=== PATIENT | male | born 1965 | race Caucasian/White ===

== ENCOUNTER 2017-01-22 13:20 | Emergency (ER) | payer OTHER ==
[2017-01-22 13:27] VITALS: BP 144/100; PULSE 72; TEMP 98; BMI 31.7
[2017-01-22] MEDS ORDERED: diazePAM 5 MG TABLET PO ONE (13:46)
[2017-01-22] MEDS ORDERED: KETOROLAC TROMETHAMINE 60 MG/2 ML VIAL IM ONE (13:46)
[2017-01-22] MEDS ORDERED: KETOROLAC TROMETHAMINE 60 MG/2 ML VIAL ONE (13:50)
[2017-01-22] MEDS ORDERED: diazePAM 5 MG TABLET ONE (13:50)
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
== END 2017-01-22 14:29 | disposition home or self-care (01) ==
LOC: JERFT 13:20
PROC: 3E0233Z Introduction of Anti-inflammatory into Muscle, Percutaneous Approach (ICD-10-PCS; principal; 2017-01-22)
DX: M54.5 Low back pain (principal); X50.1XXA Overexertion from prolonged static or awkward postures, initial encounter; Y93.89 Activity, other specified; Y92.89 Other specified places as the place of occurrence of the external cause; I10 Essential (primary) hypertension; I48.91 Unspecified atrial fibrillation
CPT/HCPCS: 99281-25

== ENCOUNTER 2017-10-05 19:52 | Emergency (ER) | payer SELFPAY ==
[2017-10-05 20:00] VITALS: BP 142/94; PULSE 85; TEMP 97.6; BMI 31.0
--- NOTE | 2017-10-05 20:00 | PDOC ---
Rapid Medical Evaluation Time Seen by Provider: 10/05/17 19:56 Medical Evaluation: Allergies Allergy/AdvReac Type Severity Reaction Status Date / Time No Known Allergies Allergy Verified 01/22/17 13:27 10/05/17 19:56 The patient presents with a chief complaint of: Tick bite to L upper leg. Tick implanted for less than 24 hours. I have performed a brief in-person evaluation of this patient; Pertinent physical exam findings: None I have ordered the following: Nothing The patient will proceed to the ED for further evaluation. Discharge Disposition - Diagnosis Tick bite Qualifiers: Encounter type: initial encounter Qualified Code(s): W57.XXXA - Bitten or stung by nonvenomous insect and other nonvenomous arthropods, initial encounter - Referrals - Patient Instructions - Post Discharge Activity
[2017-10-05] MEDS ORDERED: DOXYCYCLINE HYCLATE 100 MG CAPSULE PO ONE ×4 (20:16→20:56)
--- NOTE | 2017-10-05 20:53 | PDOC ---
History of Present Illness - General Chief Complaint: Bite Stated Complaint: INJURY Time Seen by Provider: 10/05/17 19:56 History Source: Patient Exam Limitations: No Limitations - History of Present Illness Initial Comments: 10/05/17 20:48 c/o tick bite to left inner thigh removed last night. Pt states edgar tic was alive when he bit him. Pt was working in the [employer] yesterday. Pt also states he ran out of his [employer] med. Past History - Past Medical History Allergies/Adverse Reactions: Allergies Allergy/AdvReac Type Severity Reaction Status Date / Time No Known Allergies Allergy Verified 10/05/17 19:57 Home Medications: Ambulatory Orders Aspirin Coated [Ecotrin -] 325 mg PO DAILY #30 tablet.dr 09/05/16 Pantoprazole Sodium [Protonix -] 40 mg PO DAILY #30 tablet.ec 09/05/16 Cyclobenzaprine HCl [Flexeril 10 mg] 10 mg PO BID PRN #14 tablet 01/22/17 Naproxen [Naprosyn -] 500 mg PO BID #20 tablet 01/22/17 Metoprolol Succinate [Toprol XL -] 25 mg PO DAILY #30 tab.sr.24h 10/05/17 Cardiac Disorders: Yes (A FIB) HTN: Yes Thyroid Disease: No - Suicide/Smoking/Psychosocial Hx Smoking History: Never smoked Have you smoked in the past 12 months: No Information on smoking cessation initiated: No Hx Alcohol Use: No Drug/Substance Use Hx: No Substance Use Type: None Hx Substance Use Treatment: No Review of Systems - Review of Systems Able to Perform ROS?: Yes Is the patient limited German proficient: No Constitutional: No: Symptoms Reported HEENTM: No: Symptoms Reported Respiratory: No: Symptoms reported Cardiac (ROS): No: Symptoms Reported ABD/GI: No: Symptoms Reported : No: Symptoms Reported Musculoskeletal: No: Symptoms Reported Integumentary: Yes: Symptoms Reported *Physical Exam - Vital Signs Last Vital Signs Temp Pulse Resp BP Pulse Ox 97.6 F 85 20 142/94 99 10/05/17 19:58 10/05/17 19:58 10/05/17 19:58 10/05/17 19:58 10/05/17 19:58 - Physical Exam General Appearance: Yes: Nourished, Appropriately Dressed HEENT: positive: EOMI, LEYDA, Normal ENT Inspection, TMs Normal, Pharynx Normal Extremity: positive: Normal Capillary Refill, Normal Inspection, Normal Range of Motion Integumentary: positive: Normal Color, Dry, Warm, Other (left inner thigh with 0.5cm red bite [place], no bleeding , no tick parts observed) Neurologic: positive: Fully Oriented, Alert, Normal Mood/Affect, Normal Response , Motor Strength 5/5 Medical Decision Making - Medical Decision Making 10/05/17 20:50 cc: tic bite left inner thigh pt removed [employer]LECT[employer] concerned about lyme will give doxy 200mg now will prescribe BP meds and give referall for PMD, pt states his doctor has left and has no other address. *DC/Admit/Observation/Transfer Diagnosis at time of Disposition: Tick bite Qualifiers: Encounter type: initial encounter Qualified Code(s): W57.XXXA - Bitten or stung by nonvenomous insect and other nonvenomous arthropods, initial encounter Hypertension Qualifiers: Hypertension type: unspecified Qualified Code(s): I10 - Essential (primary) hypertension - Discharge Dispostion Disposition: HOME Condition at time of disposition: Good - Prescriptions Prescriptions: Metoprolol Succinate [Toprol XL -] 25 mg PO DAILY #30 tab.sr.24h - Referrals Referrals: Malik Dykes MD [Staff Physician] - - Patient Instructions Additional Instructions: follow up with for primary care take your medications as directed for blood pressure follow with your doctor to have Lyme test drawn in 3 months wash the area with soap and water any increased redness, drainage or pain please return to the ER - Post Discharge Activity
== END 2017-10-05 20:59 | disposition home or self-care (01) ==
LOC: JERFT 19:52
DX: S70.362A Insect bite (nonvenomous), left thigh, initial encounter (principal); W57.XXXA Bitten or stung by nonvenomous insect and other nonvenomous arthropods, initial encounter; Y93.89 Activity, other specified; Y92.828 Other wilderness area as the place of occurrence of the external cause; Y99.0 Civilian activity done for income or pay
CPT/HCPCS: 99281-25

== ENCOUNTER 2019-12-30 18:37 | Inpatient (IN) | payer OTHER ==
--- NOTE | 2019-12-30 19:26 | PDOC ---
Rapid Medical Evaluation Time Seen by Provider: 12/30/19 19:23 Medical Evaluation: Allergies Allergy/AdvReac Type Severity Reaction Status Date / Time No Known Allergies Allergy Verified 12/30/19 19:23 12/30/19 19:23 This patient had a brief medical evaluation in triage cc: abcess to right upper thigh x 1 week HPI: Patient reports one week with small lesion now painful and red. Denies fever or chills PE: awake and oriented x 3 unlabored breathing right upper medial thigh with cellulitis and open abscess, Orders: iv acces, labs wound culture This patient will proceed to main ed for further evaluation Discharge Disposition - Diagnosis Cellulitis - Referrals - Patient Instructions - Post Discharge Activity
--- NOTE | 2019-12-30 21:06 | PDOC ---
History of Present Illness - General Chief Complaint: Wound Stated Complaint: SWOLLEN LEG Time Seen by Provider: 12/30/19 19:23 Past History - Past Medical History Allergies/Adverse Reactions: Allergies Allergy/AdvReac Type Severity Reaction Status Date / Time No Known Allergies Allergy Verified 12/30/19 19:23 Home Medications: Ambulatory Orders Aspirin Coated [Ecotrin -] 325 mg PO DAILY #30 tablet.dr 09/05/16 Pantoprazole Sodium [Protonix -] 40 mg PO DAILY #30 tablet.ec 09/05/16 Cyclobenzaprine HCl [Flexeril 10 mg] 10 mg PO BID PRN #14 tablet 01/22/17 Naproxen [Naprosyn -] 500 mg PO BID #20 tablet 01/22/17 Metoprolol Succinate [Toprol XL -] 25 mg PO DAILY #30 tab.sr.24h 10/05/17 Cardiac Disorders: Yes (A FIB) COPD: No HTN: Yes Thyroid Disease: No - Immunization History Immunization Up to Date: Yes - Psycho Social/Smoking Cessation Hx Smoking History: Never smoked Have you smoked in the past 12 months: No Hx Alcohol Use: No Drug/Substance Use Hx: No Substance Use Type: None Hx Substance Use Treatment: No *Physical Exam - Vital Signs Last Vital Signs Temp Pulse Resp BP Pulse Ox 98.5 F 78 20 161/95 99 12/30/19 19:24 12/30/19 19:24 12/30/19 19:24 12/30/19 19:24 12/30/19 19:24 Discharge - Discharge Information Clinical Impression/Diagnosis: Cellulitis - Follow up/Referral Referrals: Luis Carlos Patterson MD [Primary Care Provider] - - Patient Discharge Instructions - Post Discharge Activity
--- NOTE | 2019-12-30 21:53 | PDOC ---
History of Present Illness - General Chief Complaint: Wound Stated Complaint: SWOLLEN LEG Time Seen by Provider: 12/30/19 19:23 History Source: Patient Exam Limitations: No Limitations - History of Present Illness Initial Comments: 12/30/19 21:52 Lenny Tejeda is a 54M with PMH HTN on 50mg metoprolol, AFIB s/p cardioversion not on ASA or AC, and chronic L shoulder pain on naproxen presenting with R inguinal abscess and urinary retention. Patient reports one week of pain from what he describe as a large pimple on the inside of his right thigh, worsening in pain 20/10 in intensity, constant and interfering with ability to walk or stand. Denies fever/chills, N/V, C/D, abdominal pain, chest pain, palpitations, SOB. Says that he feels like he needs to urinate but today was straining and nothing came out. Denies N/T to right leg. Denies inciting injury to R thigh, was able to shave the area down before abscess grew. Denies tobacco/drugs/alcohol. 12/31/19 03:46 Patient says he often shaves the region with abscess, gets one every year but this year did not resolve. Past History - Past Medical History Allergies/Adverse Reactions: Allergies Allergy/AdvReac Type Severity Reaction Status Date / Time No Known Allergies Allergy Verified 12/30/19 19:23 Home Medications: Ambulatory Orders RX: Aspirin Coated [Ecotrin -] 325 mg PO DAILY #30 tablet. 09/05/16 RX: Pantoprazole Sodium [Protonix -] 40 mg PO DAILY #30 tablet.ec 09/05/16 RX: Metoprolol Succinate [Toprol XL -] 25 mg PO DAILY #30 tab.sr.24h 10/05/17 Telmisartan 80 mg PO DAILY 12/31/19 Cardiac Disorders: Yes (A FIB) COPD: No HTN: Yes Thyroid Disease: No - Immunization History Immunization Up to Date: Yes - Psycho Social/Smoking Cessation Hx Smoking History: Never smoked Have you smoked in the past 12 months: No Hx Alcohol Use: No Drug/Substance Use Hx: No Substance Use Type: None Hx Substance Use Treatment: No Review of Systems - Review of Systems Able to Perform ROS?: Yes Constitutional: No: Chills, Fever, Weakness HEENTM: No: Symptoms Reported Respiratory: No: Cough, Shortness of Breath Cardiac (ROS): No: Chest Pain, Edema, Irregular Heart Rate, Lightheadedness, Palpitations, Syncope ABD/GI: No: Constipated, Diarrhea, Nausea, Poor Appetite, Poor Fluid Intake, Vomiting : Yes: Other (retention). No: Flank Pain, Incontinence, Pain, Urgency Musculoskeletal: No: Back Pain, Muscle Pain, Muscle Weakness, Neck Pain Integumentary: Yes: Erythema, Lesions Neurological: No: Symptoms reported Endocrine: No: Symptoms Reported Hematologic/Lymphatic: No: Symptoms Reported All Other Systems: Reviewed and Negative *Physical Exam - Vital Signs Last Vital Signs Temp Pulse Resp BP Pulse Ox 98.5 F 78 20 161/95 99 12/30/19 19:24 12/30/19 19:24 12/30/19 19:24 12/30/19 19:24 12/30/19 19:24 - Physical Exam General Appearance: Yes: Nourished, Appropriately Dressed, Obese. No: Apparent Distress HEENT: positive: EOMI, LEYDA, Normal Voice, Symmetrical, Pharynx Normal. negative: Scleral Icterus (R), Scleral Icterus (L), Pharyngeal Erythema, Tonsillar Exudate, Tonsillar Erythema Neck: positive: Trachea midline, Normal Thyroid, Rigid, Supple. negative: Tender, Lymphadenopathy (R), Lymphadenopathy (L), Tender lateral, Tender midline Respiratory/Chest: positive: Lungs Clear, Normal Breath Sounds. negative: Chest Tender, Respiratory Distress, Accessory Muscle Use, Crackles, Rales, Rhonchi, Stridor, Wheezing Cardiovascular: positive: Regular Rhythm, Regular Rate. negative: Murmur Gastrointestinal/Abdominal: positive: Normal Bowel Sounds, Flat, Soft. negative : Tender, Organomegaly, Pulsatile Mass, Distended (no suprapubic distension), Guarding Male Genitalia: positive: normal genitalia, other (no evidence of cellulitis to groin). negative: discharge, testicular tenderness, testicular mass, epididymus tender, inguinal hernia Musculoskeletal: positive: Normal Inspection. negative: CVA Tenderness, Vertebral Tenderness Extremity: positive: Normal Capillary Refill, Normal Range of Motion, Pelvis Stable. negative: Normal Inspection (abscess to ), Tender, Cyanosis, Pedal Edema, Swelling, Calf Tenderness Integumentary: positive: Normal Color, Dry, Warm, Erythema, Other (abscess noted to R medial thigh, 2.5cm diameter) Neurologic: positive: Fully Oriented, Alert, Normal Mood/Affect, Normal Response. negative: Numbness, Sensory Deficit Procedures - Incision and Drainage I&D Site: Right: Leg Betadine cleansed: Yes Anesthesia: 1% Lidocaine w/ Epi Volume(ml): 8 Blade Size: 11 Plain Packing: No ED Treatment Course - LABORATORY CBC & Chemistry Diagram: 12/31/19 00:00 12/31/19 00:00 Medical Decision Making - Medical Decision Making 12/31/19 01:47 Patient has history cardioversion, HTN, presents with R medial thigh abscess and cellulitis to leg. No systemic symptoms, no N/T, no N/V. VS stable. Abscess drained via I&D, patient given 4mg morphine and local injection of 8cc lido 1% + epi. Region shows cellulitis along anterior/posterior thigh, needs IV ABx for cellulitis care. Extent marked with pen. Getting CMP/CBC for eval infection, ECG/CXR for eval heart given cardiac history. UA/UC ordered for eval groin infection/UTI given retention complaint, no suprapubic pain noted on exam. ECG shows NSR with HR 69, QRS 417, QTc 417. 1mm BONIFACIO in V2, no other BONIFACIO/D, no TWI. Patient requires inpatient admission for IV Abx for cellulitis. 12/31/19 02:22 Labs notable for: - WBC 14.5 - CMP WNL 12/31/19 02:44 Patient instructed to give urine but forgot. Did actually go to restroom though so not retaining as previously stated. Will still get UA for evaluation of UTI given proximity to abscess. Patient reports that he often shaves the region with the abscess. 12/31/19 03:[address] Rubin with admitting team. Admit to Med-Surg under Dr. De Jesus. Discharge - Discharge Information Problems reviewed: Yes Clinical Impression/Diagnosis: Abscess Cellulitis Qualifiers: Site of cellulitis: extremity Site of cellulitis of extremity: lower extremity Laterality: right Qualified Code(s): L03.115 - Cellulitis of right lower limb Condition: Stable - Admission Yes - Follow up/Referral Referrals: Luis Carlos Patterson MD [Primary Care Provider] - - Patient Discharge Instructions - Post Discharge Activity
[2019-12-30] MEDS ORDERED: LIDOCAINE 1%/EPI 1:100000 (20 ML MULTI DOSE VIAL) IJ ONE (22:51)
[2019-12-30] MEDS ORDERED: LIDOCAINE 1%/EPI 1:100000 (20 ML MULTI DOSE VIAL) ONE (22:53)
[2019-12-30] MEDS ORDERED: METOPROLOL TARTRATE 50 MG TABLET (FP) PO ONE (22:54)
[2019-12-30] MEDS ORDERED: morphine CARPU-JECT 4 MG/1 ML DISP.SYRIN IVPUSH ONE (23:09)
[2019-12-30] MEDS ORDERED: MORPHINE SULFATE 2 MG/ML VIAL ONE (23:14)
[2019-12-30] MEDS ORDERED: ONDANSETRON 4 MG/2 ML VIAL IVPUSH ONE (23:16)
[2019-12-30] MEDS ORDERED: ONDANSETRON 4 MG/2 ML VIAL ONE (23:18)
[2019-12-31 00:33] LABS: BASO % 0.2 % (0-2.0); EOS % 0.4 % (0-4.5); HEMOGLOBIN 13.5 GM/dL (11.7-16.9); LYMPH % 14.1 % (8-40); MCH 28.8 pg (25.7-33.7); MCHC 32.8 g/dl (32.0-35.9); MEAN CELL VOLUME 87.8 fl (80-96); MEAN PLT VOLUME 11.9 fl (7.5-11.1); MONO % 7.7 % (3.8-10.2); NEUT % 77.6 % (42.8-82.8); PLATELET COUNT 227 K/MM3 (134-434); RBC 4.67 M/mm3 (4.00-5.60); RDW 13.7 % (11.9-15.9); WHITE BLOOD COUNT 14.5 K/mm3 (4.0-10.0)
[2019-12-31 01:19] LABS: ALBUMIN 3.9 g/dl (3.4-5.0); BILIRUBIN,TOTAL 0.5 mg/dL (0.2-1); BLOOD UREA NITROGEN 23.6 mg/dL (7-18); CALCIUM 8.9 mg/dL (8.5-10.1); CREATININE 1.3 mg/dL (0.55-1.3); POTASSIUM 4.5 mmol/L (3.5-5.1); TOT PROT 7.6 g/dl (6.4-8.2)
[2019-12-31] MEDS ORDERED: CLINDAMYCIN 600MG PREMIX IVPB 600 MG/50 ML BAG IVPB SCH (02:00)
[2019-12-31] MEDS ORDERED: CLINDAMYCIN 600MG PREMIX IVPB 600 MG/50 ML BAG IVPB ONE (02:38)
[2019-12-31] MEDS ORDERED: ACETAMINOPHEN 1000 MG/100 ML VIAL (NON FORMULARY) IVPB ONE (02:43)
[2019-12-31] MEDS ORDERED: ACETAMINOPHEN INJECTION 100 ML IVPB ONE (03:25)
--- NOTE | 2019-12-31 03:32 | PN ---
Teaching Attending Note Name of Resident: Clarisa Dunlap ATTENDING PHYSICIAN STATEMENT I saw and evaluated the patient. I reviewed the resident's note and discussed the case with the resident. I agree with the resident's findings and plan as documented. SUBJECTIVE: Patient is a 54 year old man with a PMH of HTN, Tick bite, Afib (s/p cardioversion not on ASA or AC) and chronic Left shoulder pain (on naproxen) presenting with right upper thigh abscess and urinary retention. Patient reports one week of pain from what he describe as a large pimple on the inside of his right thigh, worsening in pain 20/10 in intensity, constant and interfering with ability to walk or stand. Denies fever, chills, nausea, vomiting, diarrhea, constipation, abdominal pain, chest pain, palpitations or SOB. Says that he feels like he needs to urinate but today was straining and nothing came out. Denies trauma to right leg. Was able to shave the area down before the abscess grew. Works as a construction job cost estimator. Denies alcohol, tobacco or illicit drug use. No sick contacts or recent travels. OBJECTIVE: Alert Vital Signs Period Temp Pulse Resp BP Sys/Best Pulse Ox Last 24 Hr 98.5 F 70-78 15-20 161-164/95-103 97-100 HEENT: No Jaundice, eye redness or discharge, PERRLA, EOMI. Normocephalic, atraumatic. External ears are normal and hearing is grossly intact. No nasal discharge. Neck: Supple, nontender. No palpable adenopathy or thyromegaly. No JVD Chest: Good effort. Clear to auscultation and percussion. Heart: Regular. No S3, rub or murmur Abdomen: Not distended, soft, nontender and no HSM. No rebound or guarding. Normal bowel sounds. Ext: Peripheral pulses intact. No leg edema. Right medial upper thigh abscess draining serosanguineous fluid after I&D, surrounded by a wide area of erythema ; no evidence of compartment syndrome. Skin: Warm and dry. No petechiae, rash or ecchymosis. Neuro: Alert. Oriented x3. CN 2-12 grossly intact. Sensation grossly intact in all four extremities and DTR are symmetric. Psych: Appropriate mood and affect. Good insight. Current Medications Generic Name Dose Route Start Last Admin Trade Name Freq PRN Reason Stop Dose Admin Clindamycin Phosphate 600 mg in 50 mls @ 100 mls/hr 12/31/19 02:00 12/31/19 02:43 Cleocin 600 Mg Premix Ivpb - IVPB 100 mls/hr Q8H-IV HERNANDO Administration Protocol Home Medications Medication Instructions Recorded Aspirin Coated [Ecotrin -] 325 mg PO DAILY #30 tablet. 09/05/16 Pantoprazole Sodium [Protonix -] 40 mg PO DAILY #30 tablet.ec 09/05/16 Metoprolol Succinate [Toprol XL -] 25 mg PO DAILY #30 tab.sr.24h 10/05/17 Abnormal Lab Results 12/31/19 12/31/19 00:00 00:00 WBC 14.5 H MPV 11.9 H D Absolute Neuts (auto) 11.3 H BUN 23.6 H ASSESSMENT AND PLAN: 1. Cellulitis and Abscess of right medial upper thigh - Incision and drainage of abscess done in the ER and wound dressed. Continue IV Clindamycin 600 mg q 8 hours and consult ID. Will get a CT scan of the right thigh to rule out any residual pus collection. Counseled to stop shaving his legs. EKG shows NSR with rate of 69/minute, LVH and nonspecific T wave abnormalities. While in the ER, he urinated and it appears that the urinary retention has partially resolved. Will get kidney/bladder sonogram, PSA, prostate sonogram, start Flomax 0.4 mg qd and consult Urology. Urinalysis pending. Will continue comprehensive care for all of patients comorbid conditions. 2. Obesity Counseled on the risks associated with obesity. Will provide patient all the necessary assistance, counseling and positive reinforcement to facilitate weight loss. Consult baggage screener. 3. Uncontrolled Hypertension - Needs better regimen for BP control. Will add HCTZ 12 mg q am and Amlodipine 5 mg q PM. May have to stop Metoprolol and use Cardiazem for rate control if it is deemed to be causing urinary retention. Revise regimen to ensure [id number] excellent BP control and university counselor patient on the injurious effects of uncontrolled hypertension. Nonpharmacologic measures to control hypertension like weight loss, salt restriction and exercise discussed. Importance of adherence to treatment regimen and attainment of normotension emphasized. 4. DVT prophylaxis - Lovenox 40 mg SQ q 24 hours. 5. Advance directives - Full code
--- NOTE | 2019-12-31 04:38 | HP ---
CHIEF COMPLAINT: R thigh pain PCP: Luis Carlos Patterson HISTORY OF PRESENT ILLNESS: 54 y.o. M PMH HTN, A-fib (s/p cardioversion no AC) presenting for 08/08 R thigh pain. About 1 week ago the patient noticed a pimple on his R thigh & popped it. 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 He also endorses shaving the area with a razor after having popped the pimple. It then grew in size and became tense & bullous w/ yellow fluid. He began developing extreme pain to R thigh w/ progressive erythema surrounding the site so he decided to come to the ED. He endorses diaphoresis and diffuse headache (nonpulsatile, cannot be localized to 1 area); denies chills/ N/V/D/ chest pain/ SOB/ suprapubic tenderness/ abd pain/penile discharge/ hematuria. Patient also endorsed urinary hesitancy however on my exam states he has voided w/ significant relief. Of note, patient was seen in ED here in 2017 for L groin tick bite. He also endorses a history of recurring "inner nostril pimples" which are very painful. He also mentions his has a LLE infection and oral swelling; states she is using a cream for her leg but is not receiving oral or IV antibiotics. ER course was notable for: (1) I& D of R thigh abscess, wound culture sent to lab (2) 4mg morphine (3) clindamycin 600mg IV Recent Travel: denies PAST MEDICAL HISTORY: htn, a-fib s/p cardioversion PAST SURGICAL HISTORY: Right knee arthroscopy many years ago Social History: works in construction, physical labor many hours per day Smoking: denies Alcohol:denies Drugs: denies Sexual History: sexually active with 1 partner, his . Had STI testing within the past few years, states all negative including HIV. Allergies No Known Allergies Allergy (Verified 12/30/19 19:23) HOME MEDICATIONS: Home Medications Medication Instructions Recorded Aspirin Coated [Ecotrin -] 325 mg PO DAILY #30 tablet. 09/05/16 Pantoprazole Sodium [Protonix -] 40 mg PO DAILY #30 tablet.ec 09/05/16 Metoprolol Succinate [Toprol XL -] 25 mg PO DAILY #30 tab.sr.24h 10/05/17 Telmisartan 80 mg PO DAILY 12/31/19 PHYSICAL EXAMINATION Vital Signs - 24 hr 12/30/19 12/30/19 12/31/19 19:24 23:48 00:36 Temperature 98.5 F Pulse Rate 78 Pulse Rate [ 72 70 Left Radial] Respiratory 20 15 17 Rate Blood Pressure 161/95 Blood Pressure 163/103 H 164/98 [Right Arm] O2 Sat by Pulse 99 97 100 Oximetry (%) GENERAL: Awake, alert, and fully oriented, in no acute distress. HEENT: small left lateral wall nasal polyp, non-obstructing, nares patent. LUNGS: CTABL. No wheezes, and no crackles. No accessory muscle use. HEART: RRR, normal S1 and S2 without murmurs ABDOMEN: Soft, nontender, not distended, normoactive bowel sounds MUSCULOSKELETAL: Normal range of motion at all joints. No CVA tenderness. EXTREMITIES: 2+ pulses, warm, well-perfused. No calf tenderness. No peripheral edema. NEUROLOGICAL: Cranial nerves II-XII intact. Sensation intact surrounding abscess, & throughout LE's. SKIN: R medial thigh abscess, s/p incision & drainage, serosanguinous fluid + small amt blood noted on dressing. Surrounding area of erythema extending from R medial groin to R medial knee. Area surrounding abscess warm to touch. Laboratory Results - last 24 hr 12/31/19 12/31/19 00:00 00:00 WBC 14.5 H RBC 4.67 Hgb 13.5 Hct 41.0 MCV 87.8 MCH 28.8 MCHC 32.8 RDW 13.7 Plt Count 227 MPV 11.9 H D Absolute Neuts (auto) 11.3 H Neutrophils % 77.6 Lymphocytes % 14.1 D Monocytes % 7.7 Eosinophils % 0.4 Basophils % 0.2 Nucleated RBC % 0 Sodium 140 Potassium 4.5 Chloride 106 Carbon Dioxide 26 Anion Gap 9 BUN 23.6 H Creatinine 1.3 Est GFR (CKD-EPI)AfAm 72.71 Est GFR (CKD-EPI)NonAf 62.73 Random Glucose 87 Calcium 8.9 Total Bilirubin 0.5 AST 29 ALT 27 Alkaline Phosphatase 101 Total Protein 7.6 Albumin 3.9 ASSESSMENT/PLAN: 54 y.o. M PMH HTN, A-fib (s/p cardioversion no AC) presenting for R thigh pain. #Right thigh abscess -s/p I&D -f/u wound cultures -given 1 dose clinda in ED; continue clindamycin 600mg q6h -ID consulted-- Dr. Quintero -f/u UA, urine & blood cx -afebrile, continue to monitor temp -leukocytosis 14.5, f/u AM cbc #HTN -missed evening HTN medications -adding HCTZ 12mg daily, amlodipine 5mg HS -may have to d/c metoprolol & start cardizem for rate control if contributing to urinary retention -educated patient on importance of medication compliance & outpatient follow up care #Urinary retention -f/u UA. PSA -renal, bladder & prostate U/S -flomax -urology consult #FEN -no standing fluids -replete lytes prn -sodium controlled diet #PPX lovenox sq daily #Dispo med surg Visit type - Emergency Visit Emergency Visit: Yes ED Registration Date: 12/30/19 Care time: The patient presented to the Emergency Department on the above date and was hospitalized for further evaluation of their emergent condition. - New Patient This patient is new to me today: Yes Date on this admission: 12/31/19 - Critical Care Critical Care patient: No ATTENDING PHYSICIAN STATEMENT I saw and evaluated the patient. I reviewed the resident's note and discussed the case with the resident. I agree with the resident's findings and plan as documented. SUBJECTIVE: OBJECTIVE: ASSESSMENT AND PLAN:
[2019-12-31 05:27] VITALS: BMI 31.9
[2019-12-31 06:07] LABS: URINE APPEARANCE CLEAR; URINE BILIRUBIN NEGATIVE (NEGATIVE); URINE COLOR YELLOW; URINE GLUCOSE (UA) NEGATIVE (NEGATIVE); URINE KETONE NEGATIVE (NEGATIVE); URINE LEUK ESTERASE NEGATIVE (NEGATIVE); URINE NITRITE NEGATIVE (NEGATIVE); URINE PROTEIN NEGATIVE (NEGATIVE); URINE UROBILINOGEN 0.2 mg/dL (0.2-1.0)
[2019-12-31] MEDS ORDERED: TAMSULOSIN HCL 0.4 MG CAP PO SCH (08:30)
[2019-12-31 09:15] LABS: ALBUMIN 3.3 g/dl (3.4-5.0); BILIRUBIN,TOTAL 1.2 mg/dL (0.2-1); BLOOD UREA NITROGEN 14.9 mg/dL (7-18); CALCIUM 8.1 mg/dL (8.5-10.1); CREATININE 0.9 mg/dL (0.55-1.3); POTASSIUM 3.7 mmol/L (3.5-5.1); TOT PROT 6.6 g/dl (6.4-8.2)
[2019-12-31] MEDS: CLINDAMYCIN 600MG PREMIX IVPB 600 MG/50 ML BAG IVPB SCH ×2 (09:36→14:21)
[2019-12-31] MEDS: ENOXAPARIN NA (PORCINE) 40 MG/0.4 ML DISP.SYRIN SQ SCH (09:37)
[2019-12-31] MEDS: HYDROCHLOROTHIAZIDE 12.5 MG CAPSULE (FP) PO SCH (09:37)
[2019-12-31] MEDS: ACETAMINOPHEN 325 MG TABLET (FP) PO PRN ×2 (09:44→21:48)
[2019-12-31] MEDS ORDERED: HYDROCHLOROTHIAZIDE 12.5 MG CAPSULE (FP) PO SCH (10:00)
[2019-12-31] MEDS ORDERED: FLU VACCINE QUAD 60 MCG/0.5 ML (MDV 19-20) IM ONE (10:00)
[2019-12-31 10:19] LABS: BASO % 0.2 % (0-2.0); EOS % 0.5 % (0-4.5); HEMATOCRIT 39.8 % (35.4-49); HEMOGLOBIN 13.3 GM/dL (11.7-16.9); LYMPH % 15.1 % (8-40); MCHC 33.4 g/dl (32.0-35.9); MEAN CELL VOLUME 86.7 fl (80-96); MEAN PLT VOLUME 10.7 fl (7.5-11.1); MONO % 8.4 % (3.8-10.2); NEUT % 75.8 % (42.8-82.8); PLATELET COUNT 196 K/MM3 (134-434); RBC 4.59 M/mm3 (4.00-5.60); RDW 13.4 % (11.9-15.9); WHITE BLOOD COUNT 11.3 K/mm3 (4.0-10.0)
--- NOTE | 2019-12-31 10:33 | EKG ---
Test Reason : Blood Pressure : / mmHG Vent. Rate : 069 BPM Atrial Rate : 069 BPM P-R Int : 154 ms QRS Dur : 098 ms QT Int : 390 ms P-R-T Axes : 031 004 030 degrees QTc Int : 417 ms POOR DATA QUALITY, INTERPRETATION MAY BE ADVERSELY AFFECTED NORMAL SINUS RHYTHM MODERATE VOLTAGE CRITERIA FOR LVH, MAY BE NORMAL VARIANT NONSPECIFIC T WAVE ABNORMALITY ABNORMAL ECG WHEN COMPARED WITH ECG OF 05-SEP-2016 14:37, NO SIGNIFICANT CHANGE WAS FOUND Confirmed by Ralph Angulo MD ([id number]) on 12/31/2019 10:33:06 AM Referred By: Confirmed By:Ralph Angulo MD
--- NOTE | 2019-12-31 10:45 | CON.GU ---
Consult Consult Specialty:: Reason for Consultation:: urinary retention - History of Present Illness Chief Complaint: R thigh pain History of Present Illness: 54 y.o. M PMH HTN, A-fib (s/p cardioversion no AC) presenting for 08/08 R thigh pain. About 1 week ago the patient noticed a pimple on his R thigh & popped it. 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 He also endorses shaving the area with a razor after having popped the pimple. It then grew in size and became tense & bullous w/ yellow fluid. He began developing extreme pain to R thigh w/ progressive erythema surrounding the site so he decided to come to the ED. He endorses diaphoresis and diffuse headache (nonpulsatile, cannot be localized to 1 area); denies chills/ N/V/D/ chest pain/ SOB/ suprapubic tenderness/ abd pain/penile discharge/ hematuria. Patient also endorsed urinary hesitancy however on my exam states he has voided w/ significant relief. Of note, patient was seen in ED here in 2017 for L groin tick bite. He also endorses a history of recurring "inner nostril pimples" which are very painful. He also mentions his has a LLE infection and oral swelling; states she is using a cream for her leg but is not receiving oral or IV antibiotics. cons req. ER course was notable for: (1) I& D of R thigh abscess, wound culture sent to lab (2) 4mg morphine (3) clindamycin 600mg IV - History Source Limitations to Obtaining History: No Limitations - Past Medical History Cardio/Vascular: Yes: AFIB - Alcohol/Substance Use Hx Alcohol Use: No - Smoking History Smoking history: Never smoked Have you smoked in the past 12 months: No Home Medications - Allergies Allergies/Adverse Reactions: Allergies Allergy/AdvReac Type Severity Reaction Status Date / Time No Known Allergies Allergy Verified 12/30/19 19:23 - Home Medications Home Medications: Ambulatory Orders Aspirin Coated [Ecotrin -] 325 mg PO DAILY #30 tablet.dr 09/05/16 Pantoprazole Sodium [Protonix -] 40 mg PO DAILY #30 tablet.ec 09/05/16 Metoprolol Succinate [Toprol XL -] 25 mg PO DAILY #30 tab.sr.24h 10/05/17 Telmisartan 80 mg PO DAILY 12/31/19 Physical Exam- Vital Signs: Vital Signs Temperature 98.2 F 12/31/19 05:25 Pulse Rate 67 12/31/19 05:25 Respiratory Rate 18 12/31/19 05:25 Blood Pressure 124/89 12/31/19 05:25 O2 Sat by Pulse Oximetry (%) 98 12/31/19 05:30 Constitutional: Yes: Well Nourished, No Distress, Calm Respiratory: Yes: WNL Gastrointestinal: Yes: WNL, Normal Bowel Sounds, Soft Renal/: Yes: WNL Kidneys: Yes: WNL Pelvis: Yes: WNL Testicles: Yes: WNL Scrotum: Yes: WNL Penis: Yes: WNL Prostate Exam: Yes: WNL Musculoskeletal: Yes: WNL Labs: CBC, BMP 12/31/19 09:32 12/31/19 07:00 Problem List - Problems (1) Urinary retention Assessment/Plan: rx tamsulosin, f/u in my office after disch for trus, uroflow, pvr Code(s): R33.9 - RETENTION OF URINE, UNSPECIFIED
--- NOTE | 2019-12-31 10:59 | PN ---
Physical Exam: SUBJECTIVE: Patient seen and examined at the bedside. he denies any pain, discomfort. denies urinary frequency or urinary retention OBJECTIVE: Patient is a 54 year old male with a significant past medical history of HTN, A- fib (s/p cardioversion no AC) presenting for 10/10 R thigh pain. About 1 week ago the patient noticed a pimple on his R thigh & popped it. He also reported shaving the area with a razor after having popped the pimple. It then grew in size and became tense & bullous w/ yellow fluid. He began developing extreme pain to R thigh w/ progressive erythema surrounding the site so he decided to come to the ED. ---- mrsa screening pending Vital Signs Period Temp Pulse Resp BP Sys/Best Pulse Ox Last 24 Hr 98.1 F-98.5 F 67-78 15-20 124-164/81-103 97-100 GENERAL: The patient is awake, alert, and fully oriented, in no acute distress. HEAD: Normal with no signs of trauma. EYES: PERRL, extraocular movements intact, sclera anicteric, conjunctiva clear. No ptosis. ENT: Ears normal, nares patent, oropharynx clear without exudates, moist mucous membranes. NECK: Trachea midline, full range of motion, supple. LUNGS: Breath sounds equal, clear to auscultation bilaterally, no wheezes HEART: Regular rate and rhythm ABDOMEN: Soft, nontender, nondistended, normoactive bowel sounds EXTREMITIES: no edema. large round dark wound on upper inner right thigh with pink surrounding skin. NEUROLOGICAL: Normal speech, gait not observed. PSYCH: Normal mood, normal affect. Laboratory Results - last 24 hr 12/31/19 12/31/19 12/31/19 00:00 00:00 05:42 WBC 14.5 H RBC 4.67 Hgb 13.5 Hct 41.0 MCV 87.8 MCH 28.8 MCHC 32.8 RDW 13.7 Plt Count 227 MPV 11.9 H D Absolute Neuts (auto) 11.3 H Neutrophils % 77.6 Lymphocytes % 14.1 D Monocytes % 7.7 Eosinophils % 0.4 Basophils % 0.2 Nucleated RBC % 0 Sodium 140 Potassium 4.5 Chloride 106 Carbon Dioxide 26 Anion Gap 9 BUN 23.6 H Creatinine 1.3 Est GFR (CKD-EPI)AfAm 72.71 Est GFR (CKD-EPI)NonAf 62.73 Random Glucose 87 Calcium 8.9 Total Bilirubin 0.5 AST 29 ALT 27 Alkaline Phosphatase 101 Total Protein 7.6 Albumin 3.9 Urine Color Yellow Urine Appearance Clear Urine pH 5.0 Ur Specific [place] 1.032 Urine Protein Negative Urine Glucose (UA) Negative Urine Ketones Negative Urine Blood Negative Urine Nitrite Negative Urine Bilirubin Negative Urine Urobilinogen 0.2 Ur Leukocyte Esterase Negative 12/31/19 12/31/19 07:00 09:32 WBC 11.3 H RBC 4.59 Hgb 13.3 Hct 39.8 MCV 86.7 MCH 29.0 MCHC 33.4 RDW 13.4 Plt Count 196 MPV 10.7 D Absolute Neuts (auto) 8.6 H Neutrophils % 75.8 Lymphocytes % 15.1 Monocytes % 8.4 Eosinophils % 0.5 Basophils % 0.2 Nucleated RBC % 0 Sodium 141 Potassium 3.7 Chloride 108 H Carbon Dioxide 27 Anion Gap 6 L BUN 14.9 Creatinine 0.9 Est GFR (CKD-EPI)AfAm 113.41 Est GFR (CKD-EPI)NonAf 97.85 Random Glucose 95 Calcium 8.1 L Total Bilirubin 1.2 H AST 12 L ALT 22 Alkaline Phosphatase 91 Total Protein 6.6 Albumin 3.3 L Urine Color Urine Appearance Urine pH Ur Specific [place] Urine Protein Urine Glucose (UA) Urine Ketones Urine Blood Urine Nitrite Urine Bilirubin Urine Urobilinogen Ur Leukocyte Esterase Active Medications Generic Name Dose Route Start Last Admin Trade Name Freq PRN Reason Stop Dose Admin Acetaminophen 650 mg 12/31/19 04:38 12/31/19 09:44 Tylenol - PO 650 mg Q4H PRN Administration PAIN LEVEL 6-10 Amlodipine Besylate 5 mg 12/31/19 22:00 Norvasc - PO HS HERNANDO Enoxaparin Sodium 40 mg 12/31/19 10:00 12/31/19 09:37 Lovenox - SQ 40 mg DAILY HERNANDO Administration Hydrochlorothiazide 12.5 mg 12/31/19 05:06 12/31/19 09:37 Hctz - PO 12.5 mg DAILY HERNANDO Administration Clindamycin Phosphate 600 mg in 50 mls @ 100 mls/hr 12/31/19 09:00 12/31/19 09:36 Cleocin 600 Mg Premix Ivpb - IVPB 100 mls/hr Q6H-IV HERNANDO Administration Protocol Tamsulosin HCl 0.4 mg 12/31/19 08:30 12/31/19 09:40 Flomax - PO Not Given DAILY@0830 HERNANDO ASSESSMENT/PLAN: Problem List - Problems (1) Cellulitis Assessment/Plan: patient is s/p I&D in the ED. follow up wound cultures being screened for possible mrsa on vancomycin followed by ID, recommendations noted blood cultures pending patient w/o fever, monitor leukocytosis Code(s): L03.90 - CELLULITIS, UNSPECIFIED Qualifiers: Site of cellulitis: extremity Site of cellulitis of extremity: lower extremity Laterality: right Qualified Code(s): L03.115 - Cellulitis of right lower limb (2) Urinary retention Assessment/Plan: patient denies any urinary retention seen by urology for outpatient workup Code(s): R33.9 - RETENTION OF URINE, UNSPECIFIED (3) Hypertension Assessment/Plan: bp stable on norvasc/hctz Code(s): I10 - ESSENTIAL (PRIMARY) HYPERTENSION Qualifiers: Hypertension type: unspecified Qualified Code(s): I10 - Essential (primary ) hypertension (4) DVT prophylaxis Assessment/Plan: lovenox 40 daily Code(s): Z29.9 - ENCOUNTER FOR PROPHYLACTIC MEASURES, UNSPECIFIED (5) Prophylactic measure Assessment/Plan: f: tolerating po, no ivf e: monitor electrolytes n: low salt diet Code(s): Z29.9 - ENCOUNTER FOR PROPHYLACTIC MEASURES, UNSPECIFIED Visit type - Emergency Visit Emergency Visit: Yes ED Registration Date: 12/30/19 Care time: The patient presented to the Emergency Department on the above date and was hospitalized for further evaluation of their emergent condition. - New Patient This patient is new to me today: Yes Date on this admission: 12/31/19 - Critical Care Critical Care patient: No - Discharge Referral Referred to [facility] Med P.C.: No
[2019-12-31] MEDS ORDERED: VANCOMYCIN HCL 1,500 MG in DEXTROSE 5%-WATER - 250 ML IVPB SCH (14:30)
--- NOTE | 2019-12-31 14:35 | PN ---
Progress Note (short form) - Note Progress Note: ID consult dictated imp/reccd right thigh abscess (recurrent) with cellulitis suspect community MRSA would isolate for MRSA f/u cultures treat with vancomycin at this time he may benefit from decolonization as an outpt- gets pimples yearly Problem List - Problems (1) Abscess Code(s): L02.91 - CUTANEOUS ABSCESS, UNSPECIFIED (2) Cellulitis Code(s): L03.90 - CELLULITIS, UNSPECIFIED Qualifiers: Site of cellulitis: extremity Site of cellulitis of extremity: lower extremity Laterality: right Qualified Code(s): L03.115 - Cellulitis of right lower limb
[2019-12-31] MEDS: VANCOMYCIN HCL 1,500 MG in DEXTROSE 5%-WATER - 500 ML IVPB SCH (15:25)
--- NOTE | 2019-12-31 15:28 | CONS ---
DATE OF CONSULTATION: DATE OF DICTATION: 12/31/2019 INFECTIOUS DISEASE CONSULTATION HISTORY OF PRESENT ILLNESS: This is a 54-year-old man with a past medical history of hypertension. He presents to the ER with a 1-week history of a worsening infection on his right thigh. He noted he had a pimple there about a week ago, and he popped it, and the area became worse. He shaved the area with a razor, the area became larger. He had a bullous lesion with yellow fluid. He had a lot of pain and progressive erythema around the site. He denies any fevers or chills. He has had a similar problem here in the past. He last had a pimple about 8 months ago in the same spot, was prescribed antibiotics. He had several of these pills which he took at home prior to this week, prior to coming to the ER. He reports he has a pimple in his nose as well. He reports his has a rash on her leg, but she has no soft tissue infections. She has no history of eczema. In the ER, he had an incision and drainage of the right thigh abscess. Wound culture was sent. He was started on clindamycin. PAST MEDICAL HISTORY: Notable for hypertension, atrial fibrillation status post cardioversion, and he has had right knee arthroscopy in the past. SOCIAL HISTORY: He works in construction. No history of cigarette, alcohol, or substance use. No history of diabetes. He is . He has 1 partner, and reports he is HIV negative. ALLERGIES: No known drug allergies. MEDICATION: He takes aspirin, Protonix, Toprol XL, and telmisartan as an outpatient. PHYSICAL EXAMINATION: General: He is a pleasant man. He reports feeling better than yesterday. Vital Signs: Temperature is 98. He has been afebrile since admission. Pulse is 67, blood pressure 138/83, respiratory rate 20, saturating 98% on room air. HEENT: Normocephalic. Eyes are anicteric. Neck: Supple. He has no thrush. Lungs: Clear to auscultation. Heart: Regular rate and rhythm. Abdomen: Soft. He has some right inguinal shotty adenopathy. He has a large area of cellulitis in the right thigh. He has an indurated shallow ulcer that has been drained. There is marked induration with very little purulence. Extremities: He has good pulses in his feet. On the left side of his nose he has got a painful area, on the outside of his nose as well. LABORATORY: Notable admission white count was 14, this morning is 11.3, hemoglobin 13.3, platelets are 196, BUN and creatinine are 14 and 0.9. Urinalysis is negative. Cultures are pending from the abscess and from the blood. IMPRESSION: In summary, this is a 54-year-old man admitted with a right thigh abscess which is recurrent but has never been this bad before. I suspect community methicillin-resistant Staphylococcus aureus. Would isolate for methicillin-resistant Staphylococcus aureus, follow up cultures, treat with vancomycin at this time. He may benefit from decolonization as an outpatient. ROJELIO COSTELLO M.D. [id number]
[2019-12-31] MEDS ORDERED: PT OWN MED DRAWER 7, Y5N ONE (17:50)
[2019-12-31] MEDS: amLODIPine BESYLATE 5 MG TABLET (FP) PO SCH (21:47)
[2020-01-01] MEDS ORDERED: PT OWN MED DRAWER 7, Y5N ONE ×2 (02:40→13:55)
[2020-01-01] MEDS: VANCOMYCIN HCL 1,500 MG in DEXTROSE 5%-WATER - 500 ML IVPB SCH ×2 (03:08→14:39)
[2020-01-01 07:35] LABS: BASO % 0.4 % (0-2.0); EOS % 1.4 % (0-4.5); HEMATOCRIT 39.5 % (35.4-49); HEMOGLOBIN 13.6 GM/dL (11.7-16.9); LYMPH % 14.2 % (8-40); MCH 29.5 pg (25.7-33.7); MCHC 34.3 g/dl (32.0-35.9); MEAN CELL VOLUME 85.9 fl (80-96); MEAN PLT VOLUME 10.9 fl (7.5-11.1); MONO % 8.1 % (3.8-10.2); NEUT % 75.9 % (42.8-82.8); PLATELET COUNT 206 K/MM3 (134-434); RDW 13.4 % (11.9-15.9); WHITE BLOOD COUNT 9.2 K/mm3 (4.0-10.0)
[2020-01-01 08:11] LABS: ALBUMIN 3.3 g/dl (3.4-5.0); BILIRUBIN,TOTAL 0.9 mg/dL (0.2-1); BLOOD UREA NITROGEN 9.8 mg/dL (7-18); CALCIUM 8.9 mg/dL (8.5-10.1); CREATININE 0.9 mg/dL (0.55-1.3); MAGNESIUM 2.2 mg/dL (1.8-2.4); POTASSIUM 4.1 mmol/L (3.5-5.1); TOT PROT 6.8 g/dl (6.4-8.2)
--- NOTE | 2020-01-01 09:49 | PN ---
Physical Exam: SUBJECTIVE: Patient seen and examined. feels well, denies pain. OBJECTIVE: Patient is a 54 year old male with a significant past medical history of HTN, A- fib (s/p cardioversion no AC) presenting for 10/10 R thigh pain. About 1 week ago the patient noticed a pimple on his R thigh & popped it. He also reported shaving the area with a razor after having popped the pimple. It then grew in size and became tense & bullous w/ yellow fluid. He began developing extreme pain to R thigh w/ progressive erythema surrounding the site so he decided to come to the ED. ---- mrsa screening with presumptive mrsa Vital Signs Period Temp Pulse Resp BP Sys/Best Pulse Ox Last 24 Hr 97.9 F-99 F 58-68 18-20 138-146/88-95 99 GENERAL: The patient is awake, alert, and fully oriented, in no acute distress. HEAD: Normal with no signs of trauma. EYES: PERRL, extraocular movements intact, sclera anicteric, conjunctiva clear. No ptosis. ENT: Ears normal, nares patent, oropharynx clear without exudates, moist mucous membranes. NECK: Trachea midline, full range of motion, supple. LUNGS: Breath sounds equal, clear to auscultation bilaterally, no wheezes HEART: Regular rate and rhythm ABDOMEN: Soft, nontender, nondistended, normoactive bowel sounds EXTREMITIES: . large round dark wound on upper inner right thigh with pink surrounding skin. less redness noted today. NEUROLOGICAL: Normal speech, gait not observed. PSYCH: Normal mood, normal affect. Laboratory Results - last 24 hr 12/31/19 12/31/19 01/01/20 07:00 09:32 06:35 WBC 11.3 H 9.2 RBC 4.59 4.60 Hgb 13.3 13.6 Hct 39.8 39.5 MCV 86.7 85.9 MCH 29.0 29.5 MCHC 33.4 34.3 RDW 13.4 13.4 Plt Count 196 206 MPV 10.7 D 10.9 Absolute Neuts (auto) 8.6 H 7.0 Neutrophils % 75.8 75.9 Lymphocytes % 15.1 14.2 Monocytes % 8.4 8.1 Eosinophils % 0.5 1.4 D Basophils % 0.2 0.4 Nucleated RBC % 0 0 Sodium Potassium Chloride Carbon Dioxide Anion Gap BUN Creatinine Est GFR (CKD-EPI)AfAm Est GFR (CKD-EPI)NonAf Random Glucose Calcium Magnesium Total Bilirubin AST ALT Alkaline Phosphatase Total Protein Albumin Prostate Specific Ag 1.60 01/01/20 06:35 WBC RBC Hgb Hct MCV MCH MCHC RDW Plt Count MPV Absolute Neuts (auto) Neutrophils % Lymphocytes % Monocytes % Eosinophils % Basophils % Nucleated RBC % Sodium 140 Potassium 4.1 Chloride 105 Carbon Dioxide 32 Anion Gap 4 L BUN 9.8 Creatinine 0.9 Est GFR (CKD-EPI)AfAm 113.41 Est GFR (CKD-EPI)NonAf 97.85 Random Glucose 80 Calcium 8.9 Magnesium 2.2 Total Bilirubin 0.9 AST 11 L ALT 23 Alkaline Phosphatase 86 Total Protein 6.8 Albumin 3.3 L Prostate Specific Ag Active Medications Generic Name Dose Route Start Last Admin Trade Name Freq PRN Reason Stop Dose Admin Acetaminophen 650 mg 12/31/19 04:38 12/31/19 21:48 Tylenol - PO 650 mg Q4H PRN Administration PAIN LEVEL 6-10 Amlodipine Besylate 5 mg 12/31/19 22:00 12/31/19 21:47 Norvasc - PO 5 mg HS HERNANDO Administration Enoxaparin Sodium 40 mg 12/31/19 10:00 12/31/19 09:37 Lovenox - SQ 40 mg DAILY HERNANDO Administration Hydrochlorothiazide 12.5 mg 12/31/19 05:06 12/31/19 09:37 Hctz - PO 12.5 mg DAILY HERNANDO Administration Vancomycin HCl 1,500 mg/ 500 mls @ 250 mls/hr 12/31/19 15:30 01/01/20 03:08 Dextrose IVPB 250 mls/hr Q12H HERNANDO Administration Protocol ASSESSMENT/PLAN: Problem List - Problems (1) Cellulitis Assessment/Plan: patient is s/p I&D in the ED. wound culture with presumptive mrsa. on vancomycin per ID. blood cultures pending patient w/o fever, wbc normal Code(s): L03.90 - CELLULITIS, UNSPECIFIED Qualifiers: Site of cellulitis: extremity Site of cellulitis of extremity: lower extremity Laterality: right Qualified Code(s): L03.115 - Cellulitis of right lower limb (2) Urinary retention Assessment/Plan: patient denies any urinary retention seen by urology for outpatient workup Code(s): R33.9 - RETENTION OF URINE, UNSPECIFIED (3) Hypertension Assessment/Plan: bp stable on norvasc/hctz Code(s): I10 - ESSENTIAL (PRIMARY) HYPERTENSION Qualifiers: Hypertension type: unspecified Qualified Code(s): I10 - Essential (primary ) hypertension (4) DVT prophylaxis Assessment/Plan: lovenox 40 daily Code(s): Z29.9 - ENCOUNTER FOR PROPHYLACTIC MEASURES, UNSPECIFIED (5) Prophylactic measure Assessment/Plan: f: tolerating po, no ivf e: monitor electrolytes n: low salt diet Code(s): Z29.9 - ENCOUNTER FOR PROPHYLACTIC MEASURES, UNSPECIFIED Visit type - Emergency Visit Emergency Visit: Yes ED Registration Date: 12/30/19 Care time: The patient presented to the Emergency Department on the above date and was hospitalized for further evaluation of their emergent condition. - New Patient This patient is new to me today: No - Critical Care Critical Care patient: No - Discharge Referral Referred to [facility] Med P.C.: No
[2020-01-01] MEDS: HYDROCHLOROTHIAZIDE 12.5 MG CAPSULE (FP) PO SCH (09:56)
[2020-01-01] MEDS: ENOXAPARIN NA (PORCINE) 40 MG/0.4 ML DISP.SYRIN SQ SCH (09:56)
--- NOTE | 2020-01-01 14:30 | PN ---
Progress Note (short form) - Note Progress Note: doin well less pain Vital Signs Period Temp Pulse Resp BP Sys/Best Pulse Ox Last 24 Hr 97.9 F-99 F 58-68 18-20 138-146/82-92 99-99 left nose swelling less thigh with less erythema and pain, +induration, minimal drainage CBC, BMP 01/01/20 06:35 01/01/20 06:35 Microbiology 12/31/19 00:05 Abscess Gram Stain - Final 12/31/19 00:05 Abscess Wound Culture - Preliminary Presumptive Mrsa (Pbp2a Pos) 12/31/19 09:32 Blood - Peripheral Venous Blood Culture - Preliminary NO GROWTH OBTAINED AFTER 24 HOURS, INCUBATION TO CONTINUE FOR 4 DAYS. 12/31/19 09:32 Blood - Peripheral Venous Blood Culture - Preliminary NO GROWTH OBTAINED AFTER 24 HOURS, INCUBATION TO CONTINUE FOR 4 DAYS. 12/31/19 10:20 Nares - Right Nares MRSA Screen - Final S Aureus 12/31/19 10:20 Nares - Left Nares MRSA Screen - Final S Aureus 12/31/19 05:42 Urine - Urine Clean Catch Urine Culture - Final NO GROWTH OBTAINED imp/reccd right thigh abscess (recurrent) with cellulitis continue vancomycin continue isolation f/u cutures hopefully home in next 24-48 hours he may benefit from decolonization as an outpt- gets pimples yearly Problem List - Problems (1) Abscess Code(s): L02.91 - CUTANEOUS ABSCESS, UNSPECIFIED (2) Cellulitis Code(s): L03.90 - CELLULITIS, UNSPECIFIED Qualifiers: Site of cellulitis: extremity Site of cellulitis of extremity: lower extremity Laterality: right Qualified Code(s): L03.115 - Cellulitis of right lower limb
[2020-01-01] MEDS: amLODIPine BESYLATE 5 MG TABLET (FP) PO SCH (22:01)
[2020-01-01] MEDS: ACETAMINOPHEN 325 MG TABLET (FP) PO PRN (22:01)
[2020-01-02] MEDS ORDERED: PT OWN MED DRAWER 7, Y5N ONE ×3 (02:20→13:54)
[2020-01-02] MEDS: VANCOMYCIN HCL 1,500 MG in DEXTROSE 5%-WATER - 500 ML IVPB SCH ×2 (02:40→16:25)
[2020-01-02 07:59] LABS: BASO % 0.5 % (0-2.0); EOS % 2.2 % (0-4.5); HEMATOCRIT 41.4 % (35.4-49); HEMOGLOBIN 13.9 GM/dL (11.7-16.9); LYMPH % 19.7 % (8-40); MCH 29.3 pg (25.7-33.7); MCHC 33.7 g/dl (32.0-35.9); MEAN CELL VOLUME 86.9 fl (80-96); MEAN PLT VOLUME 10.7 fl (7.5-11.1); MONO % 9.2 % (3.8-10.2); NEUT % 68.4 % (42.8-82.8); PLATELET COUNT 214 K/MM3 (134-434); RBC 4.77 M/mm3 (4.00-5.60); RDW 13.5 % (11.9-15.9)
[2020-01-02 08:36] LABS: ALBUMIN 3.4 g/dl (3.4-5.0); BILIRUBIN,TOTAL 0.7 mg/dL (0.2-1); BLOOD UREA NITROGEN 14.8 mg/dL (7-18); CALCIUM 9.2 mg/dL (8.5-10.1); CREATININE 0.9 mg/dL (0.55-1.3); MAGNESIUM 2.3 mg/dL (1.8-2.4); POTASSIUM 4.5 mmol/L (3.5-5.1)
[2020-01-02] MEDS: HYDROCHLOROTHIAZIDE 12.5 MG CAPSULE (FP) PO SCH (09:09)
[2020-01-02] MEDS: ENOXAPARIN NA (PORCINE) 40 MG/0.4 ML DISP.SYRIN SQ SCH (09:09)
--- NOTE | 2020-01-02 14:17 | PN ---
Physical Exam: SUBJECTIVE: Patient seen and examined. feels well and denies any pain. OBJECTIVE: Patient is a 54 year old male with a significant past medical history of HTN, A- fib (s/p cardioversion no AC) presenting for 10/10 R thigh pain. About 1 week ago the patient noticed a pimple on his R thigh & popped it. He also reported shaving the area with a razor after having popped the pimple. It then grew in size and became tense & bullous w/ yellow fluid. He began developing extreme pain to R thigh w/ progressive erythema surrounding the site so he decided to come to the ED. ---- mrsa + of wound. discharge once cleared by ID. Vital Signs Period Temp Pulse Resp BP Sys/Best Pulse Ox Last 24 Hr 97.6 F-98.7 F 50-68 18-20 130-146/80-92 100 GENERAL: The patient is awake, alert, and fully oriented, in no acute distress. HEAD: Normal with no signs of trauma. EYES: PERRL, extraocular movements intact, sclera anicteric, conjunctiva clear. No ptosis. ENT: Ears normal, nares patent, oropharynx clear without exudates, moist mucous membranes. NECK: Trachea midline, full range of motion, supple. LUNGS: Breath sounds equal, clear to auscultation bilaterally, no wheezes HEART: Regular rate and rhythm ABDOMEN: Soft, nontender, nondistended, normoactive bowel sounds EXTREMITIES: . large round dark wound on upper inner right thigh with pink surrounding skin. site has significantly improved since admission, no further redness to right thigh, no pain or discomfort. wound minimal sero sang drainage . NEUROLOGICAL: Normal speech, gait not observed. PSYCH: Normal mood, normal affect. Laboratory Results - last 24 hr 01/01/20 01/02/20 01/02/20 13:30 07:13 07:13 WBC 7.0 RBC 4.77 Hgb 13.9 Hct 41.4 MCV 86.9 MCH 29.3 MCHC 33.7 RDW 13.5 Plt Count 214 MPV 10.7 Absolute Neuts (auto) 4.8 Neutrophils % 68.4 Lymphocytes % 19.7 D Monocytes % 9.2 Eosinophils % 2.2 Basophils % 0.5 Nucleated RBC % 0 Sodium 138 Potassium 4.5 Chloride 102 Carbon Dioxide 32 Anion Gap 3 L BUN 14.8 Creatinine 0.9 Est GFR (CKD-EPI)AfAm 113.41 Est GFR (CKD-EPI)NonAf 97.85 Random Glucose 76 Calcium 9.2 Magnesium 2.3 Total Bilirubin 0.7 AST 15 ALT 33 Alkaline Phosphatase 90 Total Protein 7.0 Albumin 3.4 Vancomycin Pre-Dose 9.3 Active Medications Generic Name Dose Route Start Last Admin Trade Name Freq PRN Reason Stop Dose Admin Acetaminophen 650 mg 12/31/19 04:38 01/01/20 22:01 Tylenol - PO 650 mg Q4H PRN Administration PAIN LEVEL 6-10 Amlodipine Besylate 5 mg 12/31/19 22:00 01/01/20 22:01 Norvasc - PO 5 mg HS HERNANDO Administration Enoxaparin Sodium 40 mg 12/31/19 10:00 01/02/20 09:09 Lovenox - SQ 40 mg DAILY HERNANDO Administration Hydrochlorothiazide 12.5 mg 12/31/19 05:06 01/02/20 09:09 Hctz - PO 12.5 mg DAILY HERNANDO Administration Vancomycin HCl 1,500 mg/ 500 mls @ 250 mls/hr 12/31/19 15:30 01/02/20 02:40 Dextrose IVPB 250 mls/hr Q12H HERNANDO Administration Protocol ASSESSMENT/PLAN: Problem List - Problems (1) Cellulitis Assessment/Plan: patient is s/p I&D in the ED. wound culture with presumptive mrsa. on vancomycin per ID. blood cultures negative patient w/o fever, wbc normal transition to oral antibiotics once seen by ID Code(s): L03.90 - CELLULITIS, UNSPECIFIED Qualifiers: Site of cellulitis: extremity Site of cellulitis of extremity: lower extremity Laterality: right Qualified Code(s): L03.115 - Cellulitis of right lower limb (2) Urinary retention Assessment/Plan: patient denies any urinary retention seen by urology for outpatient workup Code(s): R33.9 - RETENTION OF URINE, UNSPECIFIED (3) Hypertension Assessment/Plan: bp stable on norvasc/hctz Code(s): I10 - ESSENTIAL (PRIMARY) HYPERTENSION Qualifiers: Hypertension type: unspecified Qualified Code(s): I10 - Essential (primary) hypertension (4) DVT prophylaxis Assessment/Plan: lovenox 40 daily Code(s): Z29.9 - ENCOUNTER FOR PROPHYLACTIC MEASURES, UNSPECIFIED (5) Prophylactic measure Assessment/Plan: f: tolerating po, no ivf e: monitor electrolytes n: low salt diet Code(s): Z29.9 - ENCOUNTER FOR PROPHYLACTIC MEASURES, UNSPECIFIED Visit type - Emergency Visit Emergency Visit: Yes ED Registration Date: 12/30/19 Care time: The patient presented to the Emergency Department on the above date and was hospitalized for further evaluation of their emergent condition. - New Patient This patient is new to me today: No - Critical Care Critical Care patient: No - Discharge Referral Referred to [facility] No
--- NOTE | 2020-01-02 17:35 | PN ---
Progress Note (short form) - Note Progress Note: feels well less pain Vital Signs Period Temp Pulse Resp BP Sys/Best Pulse Ox Last 24 Hr 97.6 F-98.4 F 50-58 18-20 130-146/82-92 100 cor-rrr llungs clear abd soft,nt ext much less erythema and induration CBC, BMP 01/02/20 07:13 01/02/20 07:13 Microbiology 12/31/19 00:05 Abscess Gram Stain - Final 12/31/19 00:05 Abscess Wound Culture - Final S Aureus 12/31/19 09:32 Blood - Peripheral Venous Blood Culture - Preliminary NO GROWTH OBTAINED AFTER 48 HOURS, INCUBATION TO CO NTINUE FOR 3 DAYS. 12/31/19 09:32 Blood - Peripheral Venous Blood Culture - Preliminary NO GROWTH OBTAINED AFTER 48 HOURS, INCUBATION TO CON TINUE FOR 3 DAYS. 12/31/19 10:20 Nares - Right Nares MRSA Screen - Final S Aureus 12/31/19 10:20 Nares - Left Nares MRSA Screen - Final S Aureus 12/31/19 05:42 Urine - Urine Clean Catch Urine Culture - Final NO GROWTH OBTAINED imp/reccd right thigh abscess (recurrent) with cellulitis continue vancomycin continue isolation switch to po clindamycin 300 mg po tid for one week add probiotics for one month he may benefit from decolonization as an outpt- gets pimples yearly-can f/u in our office after his abscess heals please call back if needed Problem List - Problems (1) Abscess Code(s): L02.91 - CUTANEOUS ABSCESS, UNSPECIFIED (2) Cellulitis Code(s): L03.90 - CELLULITIS, UNSPECIFIED Qualifiers: Site of cellulitis: extremity Site of cellulitis of extremity: lower extremity Laterality: right Qualified Code(s): L03.115 - Cellulitis of right lower limb
--- NOTE | 2020-01-02 18:24 | DS ---
Physical Exam: SUBJECTIVE: Patient seen and examined. denies any pain or discomfort. wants to go home. OBJECTIVE: Patient is a 54 year old male with a significant past medical history of HTN, A- fib (s/p cardioversion no AC) presenting for 10/10 R thigh pain. About 1 week ago the patient noticed a pimple on his R thigh & popped it. He also reported shaving the area with a razor after having popped the pimple. It then grew in size and became tense & bullous w/ yellow fluid. He began developing extreme pain to R thigh w/ progressive erythema surrounding the site so he decided to come to the ED. During hospital stay, patient was placed on contact isolation for MRSA of this wound. He was treated with IV Vancomycin and his wound improved as this thigh was no longer reddened and painful. He remained afebrile and his leukocytosis improved. He will be converted to Clindamycin PO per ID recommendations and will be discharged home. Recommended to patient that he follow up with is PCP for possible decolonization. ---- mrsa + of wound. cleared by ID for d/c home today Period Temp Pulse Resp BP Sys/Best Pulse Ox Last 24 Hr 97.6 F-98.4 F 50-58 18-20 130-146/82-92 100 PHYSICAL EXAM GENERAL: The patient is awake, alert, and fully oriented, in no acute distress. HEAD: Normal with no signs of trauma. EYES: PERRL, extraocular movements intact, sclera anicteric, conjunctiva clear. ENT: Ears normal, nares patent, oropharynx clear without exudates, moist mucous membranes. NECK: Trachea midline, full range of motion, supple. LUNGS: Breath sounds equal, clear to auscultation bilaterally, no wheezes, no crackles, no accessory muscle use. HEART: Regular rate and rhythm, S1, S2 without murmur, rub or gallop. ABDOMEN: Soft, nontender, nondistended, normoactive bowel sounds, no guarding, no rebound, no hepatosplenomegaly, no masses. EXTREMITIES: 2+ pulses, warm, well-perfused, no edema. NEUROLOGICAL: Cranial nerves II through XII grossly intact. Normal speech, gait not observed. PSYCH: Normal mood, normal affect. SKIN: Warm, dry, normal turgor, no rashes or lesions noted. LABS Laboratory Results - last 24 hr 01/02/20 01/02/20 07:13 07:13 WBC 7.0 RBC 4.77 Hgb 13.9 Hct 41.4 MCV 86.9 MCH 29.3 MCHC 33.7 RDW 13.5 Plt Count 214 MPV 10.7 Absolute Neuts (auto) 4.8 Neutrophils % 68.4 Lymphocytes % 19.7 D Monocytes % 9.2 Eosinophils % 2.2 Basophils % 0.5 Nucleated RBC % 0 Sodium 138 Potassium 4.5 Chloride 102 Carbon Dioxide 32 Anion Gap 3 L BUN 14.8 Creatinine 0.9 Est GFR (CKD-EPI)AfAm 113.41 Est GFR (CKD-EPI)NonAf 97.85 Random Glucose 76 Calcium 9.2 Magnesium 2.3 Total Bilirubin 0.7 AST 15 ALT 33 Alkaline Phosphatase 90 Total Protein 7.0 Albumin 3.4 HOSPITAL COURSE: Date of Admission:12/30/19 Date of Discharge: 01/02/20 Minutes to complete discharge: 45 Discharge Summary Problems reviewed: Yes Reason For Visit: ABSCESS,CELLULITIS Current Active Problems Abscess (Acute) Cellulitis (Acute) DVT prophylaxis (Acute) Prophylactic measure (Acute) Urinary retention (Acute) Urinary retention (Acute) Condition: Stable - Instructions Diet, Activity, Other Instructions: Mr. Tejeda: You were admitted for a right thigh wound/abscess and found to have MRSA of this wound. What is MRSA? MRSA (methicillin resistant staphylococcus aureus) is a resistant bacteria that can penetrate the skin, cause a wound that is not easy to heal because of its resistance. It is important that you continue the antibiotics as directed in your discharge instructions. MRSA can spread to other sites. We recommend that you follow up with your PCP or the infectious disease physician for possible decolonization treatment. What is decolonization treatment? It is a treatment that can reduce the risk of you getting recurrent infections or spreading the MRSA to others. It usually consists of antiseptic body wash and other antiseptics. This can be prescribed by your primary care doctor. You can also call the infectious disease physician that saw you during your stay. Wound care instructions: 1. Wash your hands and remove the old dressing. discard the dressing in a closed garbage bag and throw away. 2. Wash your hands again and clean the site with sterile saline twice per day. apply a small dressing (2x2) directly on wound, then apply a sterile dressing (4x4). secure with paper tape 3. Must wash your hands before, when touching wound and after each dressing changes 4. Inspect wound daily for healing and report any worsening redness, drainage or odor to your primary care doctor. If you have a fever, chills or malaise, please return to the nearest emergency room. It is important that your primary care doctor looks at this wound to assure healing. Thank you for allowing us to care for you. Questions? Please call me Kaye Joshi NP [facility] [phone] Referrals: Luis Carlos Patterson MD [Primary Care Provider] - Disposition: HOME - Home Medications Comprehensive Discharge Medication List: Ambulatory Orders Amlodipine Besylate [Norvasc -] 5 mg PO HS tablet 01/02/20 Clindamycin [Cleocin -] 300 mg PO TID #42 capsule 01/02/20 Hydrochlorothiazide [Hctz -] 12.5 mg PO DAILY cap 01/02/20 Lactobacillus Acidophilus [Bacid -] 1 tab PO DAILY #30 tab 01/02/20 Problem List - Problems (1) Cellulitis Assessment/Plan: patient is s/p I&D in the ED. wound culture with presumptive mrsa. on vancomycin per ID. blood cultures negative patient w/o fever, wbc normal transition to oral antibiotics of clindamycin Code(s): L03.90 - CELLULITIS, UNSPECIFIED Qualifiers: Site of cellulitis: extremity Site of cellulitis of extremity: lower extremity Laterality: right Qualified Code(s): L03.115 - Cellulitis of right lower limb (2) Urinary retention Assessment/Plan: patient denies any urinary retention seen by urology for outpatient workup Code(s): R33.9 - RETENTION OF URINE, UNSPECIFIED (3) Hypertension Assessment/Plan: bp stable \ Code(s): I10 - ESSENTIAL (PRIMARY) HYPERTENSION Qualifiers: Hypertension type: unspecified Qualified Code(s): I10 - Essential (primary) hypertension (4) DVT prophylaxis Assessment/Plan: lovenox 40 daily Code(s): Z29.9 - ENCOUNTER FOR PROPHYLACTIC MEASURES, UNSPECIFIED (5) Prophylactic measure Assessment/Plan: Code(s): Z29.9 - ENCOUNTER FOR PROPHYLACTIC MEASURES, UNSPECIFIED This patient is new to me today: No Emergency Visit: Yes ED Registration Date: 12/30/19 Care time: The patient presented to the Emergency Department on the above date and was hospitalized for further evaluation of their emergent condition. Critical Care patient: No - Discharge Referral Referred to [facility] No
[2020-01-02] MEDS ORDERED: CLINDAMYCIN HCL 150 MG CAPSULE (FP) PO SCH (22:00)
[2020-01-02 23:04] VITALS: BP 126/80; PULSE 60; TEMP 98
[2020-01-03] MEDS ORDERED: LACTOBACILLUS ACIDOPHILUS 1 TABLET PO SCH (10:00)
== END 2020-01-02 19:15 | disposition home or self-care (01) | DRG 603 ==
LOC: JER 18:37 → JERBED 22:58 → J8W 12-31 05:06
PROVIDERS: ADMIT Internal Medicine; ATTEND Nurse Practitioner Family
PROC: 0H9KXZZ Drainage of Right Lower Leg Skin, External Approach (ICD-10-PCS; principal; 2019-12-31)
DX: L03.115 Cellulitis of right lower limb (principal); B95.62 Methicillin resistant Staphylococcus aureus infection as the cause of diseases classified elsewhere; L02.415 Cutaneous abscess of right lower limb; R33.9 Retention of urine, unspecified; I10 Essential (primary) hypertension; M25.512 Pain in left shoulder; E66.9 Obesity, unspecified; Z68.31 Body mass index [BMI] 31.0-31.9, adult; I48.91 Unspecified atrial fibrillation
CPT/HCPCS: 36415; 76775-TC; 76856-TC; 80053; 81003; 83735; 84153; 85025; 87040; 87070; 87077; 87081; 87086; 87186; 87205; 93005; 93010; 97116-GP; 97161-GP; 99285-25; G0480; J0131; Q2036

== ENCOUNTER 2022-07-10 12:35 | Emergency (ER) | payer OTHER ==
[2022-07-10 12:51] VITALS: TEMP 98.7; BMI 31.6
[2022-07-10] MEDS ORDERED: ACETAMINOPHEN 1000 MG/100 ML BAG IVPB ONE (13:52)
[2022-07-10] MEDS ORDERED: ACETAMINOPHEN INJECTION 100 ML IVPB ONE (13:58)
[2022-07-10] MEDS ORDERED: LOSARTAN POTASSIUM 50 MG TABLET PO ONE (14:32)
[2022-07-10 14:49] LABS: BASO % 0.3 % (0-2.0); EOS % 0.8 % (0-4.5); HEMATOCRIT 43.6 % (35.4-49); HEMOGLOBIN 14.7 GM/dL (11.7-16.9); LYMPH % 20.2 % (8-40); MCH 29.6 pg (25.7-33.7); MCHC 33.7 g/dl (32.0-35.9); MEAN CELL VOLUME 87.8 fl (80-96); MEAN PLT VOLUME 10.4 fl (7.5-11.1); MONO % 5.9 % (3.8-10.2); NEUT % 72.8 % (42.8-82.8); PLATELET COUNT 193 10^3/uL (134-434); RBC 4.97 M/mm3 (4.00-5.60); RDW 13.5 % (11.9-15.9); WHITE BLOOD COUNT 7.5 K/mm3 (4.0-10.0)
[2022-07-10 15:02] LABS: INR 1.14 (0.83-1.09); PROTHROMBIN TIME (PATIENT) 13.1 SEC (9.7-13.0)
[2022-07-10 15:05] LABS: ACTIVATED PTT 33.3 SECONDS (25.2-36.5)
[2022-07-10 15:12] LABS: ALBUMIN 3.8 g/dl (3.4-5.0); BLOOD UREA NITROGEN 19.5 mg/dL (7-18)
[2022-07-10] MEDS ORDERED: LOSARTAN POTASSIUM 50 MG TABLET ONE (15:15)
[2022-07-10 15:17] LABS: TOT PROT 7.2 g/dl (6.4-8.2)
[2022-07-10 17:24] LABS: PH,URINE 5.5 (5.0-8.0); URINE APPEARANCE CLEAR; URINE BILIRUBIN NEGATIVE (NEGATIVE); URINE COLOR YELLOW; URINE GLUCOSE (UA) NEGATIVE (NEGATIVE); URINE KETONE TRACE (NEGATIVE); URINE LEUK ESTERASE NEGATIVE (NEGATIVE); URINE NITRITE NEGATIVE (NEGATIVE); URINE PROTEIN NEGATIVE (NEGATIVE); URINE UROBILINOGEN 0.2 mg/dL (0.2-1.0)
[2022-07-10 18:18] VITALS: BP 166/78; PULSE 60; RESP 17
== END 2022-07-10 18:26 | disposition home or self-care (01) ==
LOC: JER 12:35
PROC: 3E033NZ Introduction of Analgesics, Hypnotics, Sedatives into Peripheral Vein, Percutaneous Approach (ICD-10-PCS; principal; 2022-07-10)
DX: R51.9 Headache, unspecified (principal); I10 Essential (primary) hypertension
CPT/HCPCS: 36415; 70450-TC; 71046-TC-FY; 80053; 81003; 84484; 85025; 85610; 85730; 86850; 86900; 86901; 87086; 93005; 93010; 99285-25

== ENCOUNTER 2023-08-04 06:04 | Emergency (ER) | payer OTHER ==
[2023-08-04 06:11] VITALS: PULSE 60; TEMP 98.1; BMI 33.0
[2023-08-04] MEDS ORDERED: amLODIPine BESYLATE 5 MG TABLET (FP) PO ONE (06:23)
[2023-08-04] MEDS ORDERED: LOSARTAN POTASSIUM 50 MG TABLET PO ONE (06:23)
[2023-08-04] MEDS ORDERED: ACETAMINOPHEN 500 MG TABLET (FP) PO ONE (06:24)
[2023-08-04] MEDS ORDERED: LOSARTAN POTASSIUM 50 MG TABLET ONE (06:43)
[2023-08-04] MEDS ORDERED: ACETAMINOPHEN 325 MG TABLET (FP) ONE (06:43)
[2023-08-04] MEDS ORDERED: amLODIPine BESYLATE 5 MG TABLET (FP) ONE (06:43)
[2023-08-04 08:06] VITALS: BP 156/91; RESP 19
== END 2023-08-04 08:16 | disposition home or self-care (01) ==
LOC: JER 06:04
DX: M25.572 Pain in left ankle and joints of left foot (principal); R22.42 Localized swelling, mass and lump, left lower limb; S90.522A Blister (nonthermal), left ankle, initial encounter; W11.XXXA Fall on and from ladder, initial encounter; W01.198A Fall on same level from slipping, tripping and stumbling with subsequent striking against other object, initial encounter
CPT/HCPCS: 73562-TC-LT-FY; 73590-TC-LT-FY; 73610-TC-LT-FY; 73630-TC-LT; 93005; 93010; 99284-25

== ENCOUNTER 2024-03-29 19:09 | Emergency (ER) | payer OTHER ==
[2024-03-29 19:18] VITALS: BP 162/97; PULSE 59; RESP 18; TEMP 97.5; BMI 31.7
[2024-03-29] MEDS ORDERED: KETOROLAC TROMETHAMINE 30 MG/1 ML VIAL ONE (19:59)
[2024-03-29] MEDS ORDERED: LIDOCAINE 4% PATCH TP ONE (19:59)
[2024-03-29] MEDS: LIDOCAINE 5% TOPICAL PATCH TP ONE (20:03)
[2024-03-29] MEDS: KETOROLAC TROMETHAMINE 30 MG/1 ML VIAL IM ONE (20:04)
[2024-03-29] MEDS ORDERED: LIDOCAINE PATCH REMOVAL MC ONE (22:00)
== END 2024-03-29 20:25 | disposition home or self-care (01) ==
LOC: JERFT 19:09
PROC: 3E0133Z Introduction of Anti-inflammatory into Subcutaneous Tissue, Percutaneous Approach (ICD-10-PCS; principal; 2024-03-29)
DX: M54.50 Low back pain, unspecified (principal); M62.830 Muscle spasm of back
CPT/HCPCS: 99284-25